=== PATIENT | female | born 1955 | race African-American/Black ===

== ENCOUNTER → 2017-10-12 | Outpatient (CLI) | payer OTHER ==
--- NOTE | 2017-10-12 10:29 | MM ---
Reason for exam: screening (asymptomatic). Baseline mammogram. History: Patient is postmenopausal. Took hormonal contraceptives beginning at age 17. Physical Findings: Nurse did not find any significant physical abnormalities on exam. MG Screening Mammo w CAD Bilateral CC and MLO view(s) were taken. There are scattered fibroglandular densities. No suspicious abnormality in the left breast. These results were verbally communicated with the patient and result sheet given to the patient on 10/12/17. ASSESSMENT: Incomplete: need additional imaging evaluation, BI-RAD 0 RECOMMENDATION: Ultrasound of the right breast. (upper outer quadrant)
--- NOTE | 2017-10-12 10:32 | USB ---
Reason for exam: additional evaluation requested from abnormal screening. History: Patient is postmenopausal. Took hormonal contraceptives beginning at age 17. Physical Findings: Breast exam preformed at baseline screening. US Breast Limited RT Right breast ultrasound demonstrates no cystic or solid lesion seen. No suspicious sonographic finding. No sonographic correlate to the mammographic finding in upper outer quadrant of righty breast, possibly on intramammary lymph node. These results were verbally communicated with the patient and result sheet given to the patient on 10/12/17. ASSESSMENT: Probably benign, BI-RAD 3 RECOMMENDATION: Follow-up diagnostic mammogram of the right breast in 6 months.
[2017-10-12 10:38] LABS: HGB 12.5 gm/dL (11.4-16.0); Hypochromasia Slight; MCH 25.5 pg (25.0-35.0); MCHC 30.4 g/dL (31.0-37.0); MCV 83.9 fL (80.0-100.0); Mean Platelet Volume 6.6; Platelet Count 331 k/uL (150-450); RBC 4.89 m/uL (3.80-5.40); RDW 13.9 % (11.5-15.5); WBC 4.9 k/uL (3.8-10.6)
[2017-10-12 11:11] LABS: T4, Free (Free Thyroxine) 0.91 ng/dL (0.78-2.19)
--- NOTE | 2017-10-12 11:54 | BD ---
EXAMINATION TYPE: MG DEXA axial skeleton. DATE OF EXAM: 10/12/2017 COMPARISON: NONE CLINICAL HISTORY: PT IS A 61 YR OLD FEMALE: ICD-10 CODE: Z13.820 SCREENING Height: 63.2 Weight: 263 FRAX RISK QUESTIONS: Alcohol (3 or more units per day): NO Family History (Parent hip fracture): NO Glucocorticoids (More than 3mos): NO (Ex: prednisone, prednisolone, methylprednisolone, dexamethasone, and hydrocortisone). History of Fracture in Adulthood: NO Secondary Osteoporosis: NO 1. Type 1 Diabetes: NO 2. Hyperthyroidism: NO 3. Menopause before 45: NO 4. Malnutrition: NO 5. Chronic liver disease: NO Rheumatoid Arthritis: NO Current Tobacco Use: NO RISK FACTORS HISTORY OF: Family History of Osteoporosis: NO Active: SOMEWHAT Diet low in dairy products/other sources of calcium: NO Postmenopausal woman: YES AT 56 YRS OLD Take estrogen and/or progesterone medications: FOR 5 YRS IN THE PAST Hyperparathyroidism: NO Adrenal Insufficiency: NO MEDICATIONS: Additional Medications: VIT D , Additional History: NONE TO NOTE EXAM MEASUREMENTS: Bone mineral densitometry was performed using the [employer] System. Bone mineral density as measured about the Lumbar spine is: ----- L1-L4(G/cm2): 1.213 T Score Values are as follows: ----- L1: -0.2 ----- L2: 0.4 ----- L3: 0.8 ----- L4: -0.1 ----- L1-L4: 0.3 Bone mineral density THIS IS HER FIRST BONE DENSITY TEST Bone mineral density about the R hip (g/cm2): 1.074 Bone mineral density about the L hip (g/cm2): 1.113 T Score values are as follows: -----R Neck: -0.1 -----L Neck: 0.2 -----R Total: 0.5 -----L Total: 0.8 Bone mineral density BASELINE STUDY FRAX%S: THERE IS A 2.3% CHANCE OF A MAJOR OSTEOPOROTIC FX AND A 0.1% FOR A HIP FX....PROBABILITY O F FX IN 10 YRS TIME IMPRESSION: Normal (Values between +1 and -1 indicate normal bone mass). Consider repeating this study in 5 year s or sooner if there is some new clinical indication. NOTE: T-SCORE=SD OF THE YOUNG ADULT MEAN.
[2017-10-12 16:47] LABS: Hemoglobin A1C 5.6 % (4.0-6.0)
== END | disposition home or self-care (01) ==
LOC: RADMAMWWP 07:32
PROVIDERS: ATTEND Obstetrics & Gynecology
DX: Z12.31 Encounter for screening mammogram for malignant neoplasm of breast (principal); Z13.820 Encounter for screening for osteoporosis; R92.8 Other abnormal and inconclusive findings on diagnostic imaging of breast; R53.83 Other fatigue; E78.4 Other hyperlipidemia; Z13.29 Encounter for screening for other suspected endocrine disorder
CPT/HCPCS: 36415; 77067; 77080; 80061; 83036; 84439; 84443; 85027